=== PATIENT | male | born 1935 | race African-American/Black ===

== ENCOUNTER 2020-04-14 11:00 | Outpatient (CLI) | payer OTHER ==
--- NOTE | 2020-04-14 11:42 | RAD ---
PA AND LATERAL CHEST: Date: 04/14/2020 HISTORY: Preop. FINDINGS: Heart size within normal limits. There are atherosclerotic changes of the aorta. Lungs are clear of a ny infiltrates. Arthritic changes of the spine. IMPRESSION: No active intrathoracic disease. POS: JEN
[2020-04-14 14:10] LABS: PTT 27.1 sec (22.9-36.1); Prothrombin Time 13.2 sec (12.0-14.7)
[2020-04-14 14:13] LABS: #Basophils 0.1 thou/uL (0.0-0.2); #Eosinphils 0.3 thou/uL (0.0-0.7); #Lymphocytes 2.5 thou/uL (1.20-3.40); #Monocytes 0.4 thou/uL (0.11-0.59); #Neutrophils 2.8 thou/uL (1.40-6.50); %Basophils 1.4 % (0.0-1.0); %Eosinophils 5.2 % (0.0-10.0); %Lymphocytes 41.3 % (21.0-51.0); %Monocytes 6.7 % (0.0-10.0); %Neutrophils 45.4 % (42.0-75.0); Hemoglobin 15.1 g/dL (14.0-18.0); Mean Corpuscular HGB CONC 34.1 g/dL (32.0-36.0); Mean Platelet Volume 9.6 fL (7.4-10.4); Platelet Count 220 thou/uL (130-400); RBC Distribution Width 12.6 % (11.5-14.5); Red Blood Cell (RBC) Count 5.05 mill/uL (4.70-6.10); White Blood Cell (WBC) Count 6.1 thou/uL (4.8-10.8)
[2020-04-14 14:30] LABS: Hemoglobin A1c 5.9 % (4.0-6.0)
[2020-04-14 14:39] LABS: ALT (SGPT) 17 U/L (8-55); AST (SGOT) 21 U/L (5-34); Albumin 4.4 g/dL (3.4-4.8); Alkaline Phosphatase 66 U/L (40-110); Anion Gap 13 mmol/L (10-20); BUN (Urea Nitrogen) 13 mg/dL (8.4-25.7); Bilirubin, Total 0.6 mg/dL (0.2-1.2); Calc. Creatinine Clearance 0 mL/min (70-130); Calcium 9.4 mg/dL (7.8-10.44); Carbon Dioxide 25 mmol/L (23-31); Chloride 105 mmol/L (98-107); Estimated GFR-MDRD 67; Globulin 3.3 g/dL (2.4-3.5); Glucose 123 mg/dL (83-110); Potassium 4.4 mmol/L (3.5-5.1); Protein, Total 7.7 g/dL (5.8-8.1); Sodium 139 mmol/L (136-145)
[2020-04-14 15:36] LABS: Bilirubin Negative (Negative); Blood, Urine Negative (Negative); Clarity Clear (Clear); Glucose, Urine (Dipstick) Negative (Negative); Ketone, Urine Negative (Negative); Leukocyte Negative (Negative); Nitrite Negative (Negative); Protein, Urine (Dipstick) Negative (Neg-Trace); Urobilinogen 0.2 mg/dL (Less than 2)
[2020-04-14 15:55] LABS: Bacteria/HPF None Seen HPF (None Seen); RBC/HPF 0-3 HPF (0-3); Squamous Epithelial 0-3 HPF (0-3); WBC/HPF 0-3 HPF (0-3)
== END 2020-04-14 11:01 | disposition home or self-care (01) ==
LOC: SCSRAD 11:00
PROVIDERS: ATTEND Family Medicine
DX: Z01.818 Encounter for other preprocedural examination (principal)
CPT/HCPCS: 36415; 71046; 80053; 81001; 83036; 85025; 85610; 85730

== ENCOUNTER 2021-12-19 14:56 | Inpatient (IN) | payer OTHER ==
[2021-12-19] MEDS ORDERED: Acetaminophen 500 MG TAB PO PRN (16:46)
[2021-12-19] MEDS ORDERED: Ondansetron ODT 4 MG TAB PO PRN (16:46)
[2021-12-19] MEDS ORDERED: Ondansetron PF 4 MG/2 ML Vial IVP PRN (16:46)
[2021-12-19] MEDS ORDERED: hydrALAZINE 20 MG/ML VIAL SLOW IVP PRN (16:46)
[2021-12-19 17:18] VITALS: BMI 27.3
[2021-12-19] MEDS ORDERED: Pantoprazole 40 MG VIAL IVP SCH (17:45)
[2021-12-19] MEDS: Sodium Chloride 0.9% 1,000 ML IV SCH (18:03)
[2021-12-19 21:26] LABS: SARS-CoV-2 PCR by NAA Not Detected (NotDetected)
[2021-12-19] MEDS: Pantoprazole 40 MG VIAL IVP SCH (22:23)
[2021-12-19] MEDS: Terazosin HCl 5 MG CAP PO SCH (22:23)
[2021-12-20 04:28] LABS: Anion Gap 11 mmol/L (10-20); BUN (Urea Nitrogen) 28 mg/dL (8.4-25.7); Calc. Creatinine Clearance 60 mL/min (70-130); Calcium 8.2 mg/dL (7.8-10.44); Carbon Dioxide 22 mmol/L (23-31); Chloride 112 mmol/L (98-107); Glucose 104 mg/dL (83-110); Potassium 4.4 mmol/L (3.5-5.1); Sodium 141 mmol/L (136-145)
[2021-12-20 04:34] LABS: Band 2 % (5-11); Eosinophils 2 % (0-10); Hemoglobin 9.1 g/dL (14.0-18.0); Lymphocytes 47 % (21-51); MDiff Complete? YES; Mean Corpuscular HGB CONC 33.2 g/dL (32.0-36.0); Mean Corpuscular Hemoglobin 29.2 pg (27.0-31.0); Mean Corpuscular Volume 88.1 fL (78.0-98.0); Mean Platelet Volume 8.1 fL (7.4-10.4); Monocytes 2 % (0-10); Neutrophil 40 % (42-75); Platelet Count 198 thou/uL (130-400); Platelet Morphology Comment Appears Adequate; RBC Distribution Width 13.2 % (11.5-14.5); RBC Morphology Normal; Reactive Lymphocytes 6 % (0-10); White Blood Cell (WBC) Count 7.6 thou/uL (4.8-10.8)
[2021-12-20] MEDS: Sodium Chloride 0.9% 1,000 ML IV SCH ×3 (04:52→13:42)
[2021-12-20] MEDS: Terazosin HCl 5 MG CAP PO SCH ×2 (08:49→20:24)
[2021-12-20] MEDS: Pantoprazole 40 MG VIAL IVP SCH ×2 (08:49→20:24)
[2021-12-20] MEDS ORDERED: Lidocaine 1% PF 5 ML VIAL ONE (12:29)
[2021-12-20] MEDS ORDERED: PROPOFOL 200 MG/20 ML VIAL ONE (12:29)
[2021-12-20] MEDS ORDERED: Promethazine HCl 25 MG/ML VIAL IVPB PRN (12:51)
[2021-12-20] MEDS ORDERED: Ondansetron HCl/PF 4 MG/2 ML Vial IVP PRN (12:51)
[2021-12-20] MEDS ORDERED: Promethazine HCl 25 MG/ML VIAL IM PRN (12:51)
[2021-12-20] MEDS ORDERED: Iron, Sodium Ferric Gluconate 250 MG in Sodium Chloride 0.9% 250 ML 250 ML IVPB SCH (13:00)
[2021-12-20] MEDS ORDERED: Senokot S 8.6-50 MG TAB PO SCH (14:30)
[2021-12-20] MEDS: Senokot S 8.6-50 MG TAB PO SCH (20:24)
[2021-12-21] MEDS ORDERED: cloNIDine 0.1 MG TAB PO PRN (00:10)
[2021-12-21 04:21] LABS: Hemoglobin 8.1 g/dL (14.0-18.0)
[2021-12-21] MEDS: Sodium Chloride 0.9% 1,000 ML IV SCH (04:31)
[2021-12-21 04:42] LABS: Anion Gap 10 mmol/L (10-20); BUN (Urea Nitrogen) 16 mg/dL (8.4-25.7); Calc. Creatinine Clearance 68 mL/min (70-130); Calcium 8.1 mg/dL (7.8-10.44); Carbon Dioxide 22 mmol/L (23-31); Chloride 110 mmol/L (98-107); Glucose 81 mg/dL (83-110); Sodium 138 mmol/L (136-145)
[2021-12-21] MEDS ORDERED: Oxybutynin 5 MG TAB PO SCH (09:00)
[2021-12-21 09:44] LABS: Hemoglobin 8.8 g/dL (14.0-18.0)
[2021-12-21] MEDS: Senokot S 8.6-50 MG TAB PO SCH (09:45)
[2021-12-21] MEDS: Terazosin HCl 5 MG CAP PO SCH (09:46)
[2021-12-21] MEDS: Pantoprazole 40 MG VIAL IVP SCH (09:47)
[2021-12-21 10:45] VITALS: BP 164/70; TEMP 97.4
== END 2021-12-21 11:25 | disposition home or self-care (01) | DRG 378 ==
LOC: 2NO 15:48
PROVIDERS: ADMIT Family Medicine; ATTEND Family Medicine
PROC: 0DB68ZX Excision of Stomach, Via Natural or Artificial Opening Endoscopic, Diagnostic (ICD-10-PCS; principal; 2021-12-20)
PROC: 0W3P8ZZ Control Bleeding in Gastrointestinal Tract, Via Natural or Artificial Opening Endoscopic (ICD-10-PCS; 2021-12-20)
DX: K25.4 Chronic or unspecified gastric ulcer with hemorrhage (principal); D62 Acute posthemorrhagic anemia; M19.90 Unspecified osteoarthritis, unspecified site; I10 Essential (primary) hypertension; Z20.822 Contact with and (suspected) exposure to COVID-19; N40.0 Benign prostatic hyperplasia without lower urinary tract symptoms; Z98.1 Arthrodesis status; Z90.79 Acquired absence of other genital organ(s)
CPT/HCPCS: 36415; 80048; 85014; 85018; 85025; 88305; 88342; C9113; J2704; J2916; J7050; U0003; U0005

== ENCOUNTER 2022-07-02 10:33 | Outpatient (CLI) | payer OTHER | END 2022-07-02 10:34 | disposition home or self-care (01) | LOC: BICCT 10:33 | PROVIDERS: ATTEND Surgery | DX: M47.22 Other spondylosis with radiculopathy, cervical region (principal); M48.02 Spinal stenosis, cervical region; G95.20 Unspecified cord compression; Z98.890 Other specified postprocedural states | CPT/HCPCS: 72125 ==

== ENCOUNTER 2023-05-18 13:12 | Outpatient (CLI) | payer OTHER | END 2023-05-18 13:13 | disposition home or self-care (01) | LOC: RAD 13:12 | PROVIDERS: ATTEND Nurse Practitioner Women's Health | DX: R05.1 Acute cough (principal) | CPT/HCPCS: 71046 ==

== ENCOUNTER 2023-05-31 08:57 | Outpatient (CLI) | payer MEDICARE | END 2023-05-31 08:58 | disposition home or self-care (01) | LOC: BICULT 08:57 | PROVIDERS: ATTEND Internal Medicine Nephrology | DX: I12.9 Hypertensive chronic kidney disease with stage 1 through stage 4 chronic kidney disease, or unspecified chronic kidney disease (principal); N18.9 Chronic kidney disease, unspecified; R94.39 Abnormal result of other cardiovascular function study | CPT/HCPCS: 76770; 93975 ==

== ENCOUNTER 2025-04-25 06:33 | Day surgery (SDC) | payer OTHER ==
[2025-04-24 14:31] VITALS: BMI 25.8
[2025-04-25] MEDS ORDERED: PROPOFOL 20 ML ONE (08:19)
== END 2025-04-25 10:08 | disposition home or self-care (01) ==
LOC: SDC 06:33
PROVIDERS: ATTEND Internal Medicine Gastroenterology
PROC: 0DB58ZX Excision of Esophagus, Via Natural or Artificial Opening Endoscopic, Diagnostic (ICD-10-PCS; principal; 2025-04-25)
DX: K29.70 Gastritis, unspecified, without bleeding (principal); K25.0 Acute gastric ulcer with hemorrhage; E11.9 Type 2 diabetes mellitus without complications; Z79.899 Other long term (current) drug therapy; Z87.891 Personal history of nicotine dependence
CPT/HCPCS: 88305; J2704

== ENCOUNTER 2025-05-19 07:37 | Observation (INO) | payer OTHER ==
[2025-05-19 08:03] LABS: #Basophils 0.07 10x3/uL (0.0-0.2); #Eosinophils 0.54 10x3/uL (0.0-0.7); #Monocytes 0.48 10x3/uL (0.11-0.59); #Neutrophils 3.97 10x3/uL (1.40-6.50); %Basophils 1.0 % (0.0-1.0); %Eosinophils 7.6 % (0.0-10.0); %Lymphocytes 28.2 % (21.0-51.0); %Monocytes 6.8 % (0.0-10.0); %Neutrophils 56.1 % (42.0-75.0); Hematocrit 32.8 % (42.0-52.0); Hemoglobin 11.3 g/dL (14.0-18.0); Mean Corpuscular Hemoglobin 27.2 pg (27.0-31.0); Mean Corpuscular Volume 78.8 fL (78.0-98.0); Platelet Count 312 10x3/uL (130-400); Red Blood Cell (RBC) Count 4.16 mill/uL (4.70-6.10); White Blood Cell (WBC) Count 7.08 10x3/uL (4.8-10.8)
[2025-05-19 08:16] LABS: ALT (SGPT) 17 U/L (Less than 45); AST (SGOT) 23 U/L (11-34); Albumin 3.6 g/dL (3.1-4.5); Alkaline Phosphatase 48 U/L (40-110); Anion Gap 15 mmol/L (10-20); BUN (Urea Nitrogen) 25 mg/dL (8.4-25.7); Bilirubin, Total 0.8 mg/dL (0.3-1.2); Calc. Creatinine Clearance 0 mL/min (70-130); Calcium 8.7 mg/dL (7.8-10.44); Carbon Dioxide 20 mmol/L (23-31); Chloride 106 mmol/L (98-107); Globulin 3.6 g/dL (2.4-3.5); Glucose 115 mg/dL (83-110); Potassium 4.1 mmol/L (3.5-5.1); Sodium 137 mmol/L (136-145)
[2025-05-19] MEDS ORDERED: Furosemide 40 MG (4 mL) VIAL ONE (09:18)
[2025-05-19] MEDS ORDERED: Bisacodyl 10 MG SUPP PR PRN (11:19)
[2025-05-19] MEDS ORDERED: Senokot S 8.6-50 MG TAB PO PRN (11:19)
[2025-05-19] MEDS ORDERED: Ondansetron PF 4 MG/2 ML Vial IVP PRN (11:19)
[2025-05-19] MEDS ORDERED: Acetaminophen 325 MG TAB PO PRN (11:19)
[2025-05-19] MEDS ORDERED: Dextrose 50% Abboject 50 ML SYRINGE SLOW IVP PRN (11:35)
[2025-05-19] MEDS ORDERED: Glucagon 1 MG/ML KIT IM PRN (11:35)
[2025-05-19 13:23] VITALS: BMI 26.4
[2025-05-19] MEDS: Pantoprazole 40 MG DR.TAB PO SCH (14:16)
[2025-05-19] MEDS: Furosemide 40 MG (4 mL) VIAL SLOW IVP SCH (14:17)
[2025-05-19] MEDS: PNEUMOC 20-VAL CONJ-DIP CRM/PF 0.5 ML SYRINGE IM ONE (15:01)
[2025-05-19 18:19] LABS: Cocaine Metabolite Screen Negative (Negative); THC/Cannabinoid Screen Negative (Negative); Tricyclic Screen Negative (Negative)
[2025-05-19 19:11] LABS: Magnesium 1.9 mg/dL (1.6-2.6)
[2025-05-20 05:47] LABS: #Basophils 0.06 10x3/uL (0.0-0.2); #Eosinophils 0.57 10x3/uL (0.0-0.7); #Monocytes 0.62 10x3/uL (0.11-0.59); #Neutrophils 4.24 10x3/uL (1.40-6.50); %Basophils 0.9 % (0.0-1.0); %Eosinophils 8.1 % (0.0-10.0); %Lymphocytes 21.1 % (21.0-51.0); %Monocytes 8.8 % (0.0-10.0); %Neutrophils 60.5 % (42.0-75.0); Hematocrit 33.0 % (42.0-52.0); Hemoglobin 11.3 g/dL (14.0-18.0); Mean Corpuscular Hemoglobin 27.3 pg (27.0-31.0); Mean Corpuscular Volume 79.7 fL (78.0-98.0); Platelet Count 318 10x3/uL (130-400); Red Blood Cell (RBC) Count 4.14 mill/uL (4.70-6.10); White Blood Cell (WBC) Count 7.01 10x3/uL (4.8-10.8)
[2025-05-20 06:06] LABS: ALT (SGPT) 15 U/L (Less than 45); AST (SGOT) 19 U/L (11-34); Albumin 3.4 g/dL (3.1-4.5); Alkaline Phosphatase 47 U/L (40-110); Anion Gap 16 mmol/L (10-20); BUN (Urea Nitrogen) 29 mg/dL (8.4-25.7); Bilirubin, Direct 0.4 mg/dL (0.1-0.3); Bilirubin, Total 0.8 mg/dL (0.3-1.2); Calc. Creatinine Clearance 35 mL/min (70-130); Calcium 8.9 mg/dL (7.8-10.44); Carbon Dioxide 22 mmol/L (23-31); Cardiac Risk 3.3 (Less than 4.5); Chloride 105 mmol/L (98-107); Cholesterol 89 mg/dl (< 200 Desired); Glucose 102 mg/dL (83-110); HDL Cholesterol 27 mg/dL (>60 Neg Risk); LDL Cholesterol, Calculated 51 mg/dL; Magnesium 1.9 mg/dL (1.6-2.6); Potassium 3.7 mmol/L (3.5-5.1); Sodium 139 mmol/L (136-145); Triglycerides 56 mg/dL (Less than 150)
[2025-05-20] MEDS: Losartan 25 MG TAB PO SCH (08:37)
[2025-05-20] MEDS: Pantoprazole 40 MG DR.TAB PO SCH (08:39)
[2025-05-20] MEDS ORDERED: Furosemide 20 MG TAB PO SCH (09:00)
[2025-05-20] MEDS ORDERED: Oxybutynin 5 MG TAB PO SCH (09:00)
[2025-05-20] MEDS ORDERED: Turmeric Root Extract [Turmeric] 500 MG Capsule PO SCH (09:00)
[2025-05-20 11:21] VITALS: TEMP 98.2
[2025-05-20 11:31] VITALS: BP 118/64
== END 2025-05-20 15:30 | disposition home or self-care (01) ==
LOC: SUATTDRO 07:37 → ERS 07:37 → 2NO 11:22
PROVIDERS: ADMIT Family Medicine; ATTEND Internal Medicine
DX: I13.0 Hypertensive heart and chronic kidney disease with heart failure and stage 1 through stage 4 chronic kidney disease, or unspecified chronic kidney disease (principal); I50.33 Acute on chronic diastolic (congestive) heart failure; N18.32 Chronic kidney disease, stage 3b; E11.22 Type 2 diabetes mellitus with diabetic chronic kidney disease; I5A Non-ischemic myocardial injury (non-traumatic); I47.10 Supraventricular tachycardia, unspecified; N40.0 Benign prostatic hyperplasia without lower urinary tract symptoms; Z79.899 Other long term (current) drug therapy
CPT/HCPCS: 36415; 36416; 71045; 80048; 80053; 80061; 80076; 80306; 80307; 83036; 83735; 83880; 84443; 84484; 85025; 93005; 93798; 96374; 96376; G0378; J1940